=== PATIENT | female | born 1980 | race Caucasian/White ===

== ENCOUNTER 2022-06-05 14:04 | Inpatient (IN) | payer OTHER, SELFPAY ==
--- NOTE | ~2022-06-05 | CT_ITS ---
EXAMINATION: CT ABDOMEN AND PELVIS WITHOUT CONTRAST CLINICAL INFORMATION: Abdominal pain, vomiting COMPARISON: None available. TECHNIQUE: Multidetector volumetric imaging was performed from the superior aspect of the liver through the pubic symphysis. Sagittal and coronal reformatted images were obtained on the technologist's workstation. This CT examination was performed using dose optimization techniques as appropriate, variously including the following: *Automated exposure control *Adjustment of mA and/or kV according to patient size (this includes techniques or standardized protocols for targeted exams where dose is matched to indication/reason for exam; i.e. extremities or head) *Use of iterative reconstruction technique DLP: 446 mGy-cm FINDINGS: LUNG BASES: Unremarkable. ABDOMINAL AND PELVIC WALL: Tiny fat-containing umbilical hernia. LIVER AND BILIARY TREE: Hypoattenuating hepatic parenchyma compatible with hepatic steatosis. GALLBLADDER: Unremarkable. PANCREAS: Unremarkable. SPLEEN: Unremarkable. ADRENAL GLANDS: Unremarkable. KIDNEYS AND URETERS: Intermediate attenuation right upper pole renal lesion measuring 2.0 cm. Right renal parenchymal cortical scarring. Punctate nonobstructing right renal stones. Right sided urothelial thickening. No obstructing stone. Lack of contrast limits evaluation for pyelonephritis. GASTROINTESTINAL TRACT: Colonic diverticulosis without evidence of diverticulitis. Normal appendix. VASCULAR: Unremarkable. LYMPH NODES/PERITONEUM: No lymphadenopathy. FREE FLUID: None. BLADDER: Unremarkable. PELVIC VISCERA: Tampon is present within the vagina. OSSEOUS STRUCTURES: Status post right sacroiliac fusion. Chronic fracture deformities of the bilateral pubic rami. CT/CT abdomen pelvis wo IV con IMPRESSION: 1. Right-sided urothelial thickening, which could be seen in the setting of a urinary tract infection. Recommend correlation with urinalysis. Lack of intravenous contrast limits evaluation for pyelonephritis. 2. Intermediate attenuation right upper pole renal lesion measuring 2.0 cm, incompletely characterized. Recommend further characterization with renal ultrasound and if findings are not determined to reflect a cyst a CT or MR renal mass protocol would be required for further evaluation. 3. Punctate nonobstructing right renal stones. No obstructing stones. 4. Hepatic steatosis.
--- NOTE | ~2022-06-05 | US_ITS ---
EXAMINATION: US PELVIS COMPLETE CLINICAL INFORMATION: Rule out torsion COMPARISON: Same-day CT abdomen pelvis TECHNIQUE: Transabdominal and transvaginal imaging was performed. FINDINGS: The uterus is of normal size and echogenicity measuring 8.3 x 4.5 x 5.2 cm. The endometrium measures thickened for the phase of menstrual cycle measuring 2.1 cm in thickness. Fundal endometrium appears heterogeneous in appearance with question of a 1.8 x 1.1 x 1.4 cm endometrial polyp which could be confirmed with a saline sonohysterogram if warranted. Nabothian cysts in the cervix. Possible small 1.5 cm subserosal myoma in the posterior body of the uterus. Both ovaries are of normal size and echogenicity. The right measures 2.1 x 1.7 x 1.6 cm for a volume of 3.0 mL. The left measures 2.3 x 1.7 x 2.3 cm for a volume of 4.7 mL. Physiologic left ovarian corpus luteum. Vascular flow is present without findings to suggest ovarian torsion. There is no pelvic free fluid. US/US pelvic and transvaginal IMPRESSION: 1. No evidence of ovarian torsion. 2. Endometrium measures thickened for the phase of menstrual cycle measuring 2.1 cm in thickness. Fundal endometrium appears heterogeneous in appearance with question of a 1.8 cm endometrial polyp which could be confirmed with a saline sonohysterogram if warranted. 3. Possible small 1.5 cm subserosal myoma in the posterior body of the uterus.
--- NOTE | ~2022-06-05 | US_ITS ---
EXAMINATION: US PELVIS COMPLETE CLINICAL INFORMATION: Rule out torsion COMPARISON: Same-day CT abdomen pelvis TECHNIQUE: Transabdominal and transvaginal imaging was performed. FINDINGS: The uterus is of normal size and echogenicity measuring 8.3 x 4.5 x 5.2 cm. The endometrium measures thickened for the phase of menstrual cycle measuring 2.1 cm in thickness. Fundal endometrium appears heterogeneous in appearance with question of a 1.8 x 1.1 x 1.4 cm endometrial polyp which could be confirmed with a saline sonohysterogram if warranted. Nabothian cysts in the cervix. Possible small 1.5 cm subserosal myoma in the posterior body of the uterus. Both ovaries are of normal size and echogenicity. The right measures 2.1 x 1.7 x 1.6 cm for a volume of 3.0 mL. The left measures 2.3 x 1.7 x 2.3 cm for a volume of 4.7 mL. Physiologic left ovarian corpus luteum. Vascular flow is present without findings to suggest ovarian torsion. There is no pelvic free fluid. US/US pelvic ovarian doppler IMPRESSION: 1. No evidence of ovarian torsion. 2. Endometrium measures thickened for the phase of menstrual cycle measuring 2.1 cm in thickness. Fundal endometrium appears heterogeneous in appearance with question of a 1.8 cm endometrial polyp which could be confirmed with a saline sonohysterogram if warranted. 3. Possible small 1.5 cm subserosal myoma in the posterior body of the uterus.
[2022-06-05 15:03] LABS: Basophils Absolute Auto 0.1 X10*3/uL (0.0-0.2); Basophils Percent Auto 0.3 % (0-2); Eosinophils Percent Auto 0.1 % (0-4); Hematocrit 36.1 % (37.0-47.0); Hemoglobin 12.4 g/dl (12.0-16.0); Imm Gran Abs Auto 0.08 X10*3/uL (0.00-0.03); Imm Gran Pct Auto 0.5 % (0.0-0.4); Lymphocytes Absolute Auto 1.3 X10*3/uL (1.2-4.9); MANUAL DIFF FLAG SCAN; Mean Corpuscular HGB Conc 34.3 g/dl (31.0-35.0); Mean Corpuscular Hemoglobin 30.2 pg (27.0-33.0); Mean Corpuscular Volume 87.8 fL (80.0-98.0); Mean Platelet Volume 8.5 fL (9.4-12.3); Monocytes Absolute Auto 1.7 X10*3/uL (0.1-1.2); Monocytes Percent Auto 10.3 % (2-11); Neutrophils Absolute Auto 13.4 x10*3/uL (2.0-8.3); Neutrophils Percent Auto 80.8 % (45-73); Platelet Count 250 X10*3/uL (160-400); Red Blood Count 4.11 X10*6/uL (4.20-5.50); Red Cell Distribution Width 13.1 % (11.0-16.0); SCAN SMEAR FLAG 1; White Blood Count 16.6 X10*3/uL (4.8-10.8)
[2022-06-05 15:37] VITALS: BP 129/79; PULSE 83; RESP 16; TEMP 36.9; O2SAT 99; BMI 23.5
--- NOTE | 2022-06-05 15:38 | ED_ITS ---
HPI - Nausea/Vomiting/Diarrhea General Chief complaint: Urogenital-Female <KVNG Dunn Last Filed: 06/05/22 15:42> Stated complaint: vomiting <KVNG Dunn Last Filed: 06/05/22 15:42> Time Seen by Provider: 06/05/22 18:08 <KVNG Dunn Last Filed: 06/05/22 15:42> Source: patient <KVNG Craig Last Filed: 06/05/22 21:46> Mode of arrival: ambulatory <KVNG Craig Last Filed: 06/05/22 21:46> Limitations: no limitations <KVNG Craig Last Filed: 06/05/22 21:46> History of Present Illness HPI Narrative: This is a 42-year-old female history of anxiety presenting to the emergency department with diffuse lower abdominal pain, nausea, vomiting, urinary frequency, urgency, pressure to pelvic region, subjective fevers and chills, frontal head ache ( bandlike pressure, feels like typical, no dizziness, head trauma.) bilateral flank discomfort all of which started at approximately 04:00 today. Patient reports she is not feeling well at all, she reports that she had UTIs when she was in this feels similar. Denies chest pain, shortneses of breath, vision changes, dizziness, hematemesis, diarrhea, trauma. <KVNG Craig Last Filed: 06/05/22 21:46> Related Data Allergies/Adverse reactions: Allergies Allergy/AdvReac Type Severity Reaction Status Date / Time Penicillins Allergy Hives Verified 06/05/22 19:49 <KVNG Dunn Last Filed: 06/05/22 15:42> Review of Systems Review of Systems: Constitutional : No Weight loss, + Fever, + Chills, + Fatigue, + Malaise ENT/Mouth : No sore throat, No Rhinorrhea Eyes: No Eye Pain, No Swelling, No Redness Cardiovascular : No Chest Pain, No SOB, No Dyspnea on Exertion, No Orthopnea, No Edema, No Palpitations Respiratory : No Cough, No Sputum, No Wheezing Gastrointestinal : + Nausea, + Vomiting, No Diarrhea, No Constipation, + abdominal Pain, No Hematochezia, No Melena Genitourinary : No Dysuria, No Urinary Frequency, No Hematuria, + vaginal discomfort Musculoskeletal : No joint pain, No Myalgias, No Joint Swelling Skin : No Skin Lesions, No rash Neuro : No Weakness, No Numbness, No Dizziness, No Headache Psych : No Anxiety/Panic, No Depression All other systems reviewed and are negative <KVNG Craig - Last Filed: 06/05/22 21:46> Yes all other systems are reviewed and are negative <KVNG Craig - Last Filed: 06/05/22 21:46> [facility] Past Medical History Attestation statement: The following information was validated with the patient. <KVNG Craig - Last Filed: 06/05/22 21:46> Source: old records reviewed and nursing notes reviewed <KVNG Craig - Last Filed: 06/05/22 21:46> Social History Social History: Social History Advance Directives: No Advance Directives Information Provided: Yes <KVNG Dunn - Last Filed: 06/05/22 15:42> Physical Exam Vital Signs: Vital Signs: Last Vital Signs Temp 98.6 F 06/05/22 19:57 Pulse 83 06/05/22 19:57 Resp 06/05/22 19:57 BP 132/79 06/05/22 19:57 Pulse Ox 97 06/05/22 19:57 O2 Del Method Room Air 06/05/22 19:57 BMI result Body Mass Index 23.5 <KVNG Dunn - Last Filed: 06/05/22 15:42> Vital Signs: Last Vital Signs Temp 98.6 F 06/05/22 19:57 Pulse 83 06/05/22 19:57 Resp 06/05/22 19:57 BP 132/79 06/05/22 19:57 Pulse Ox 97 06/05/22 19:57 O2 Del Method Room Air 06/05/22 19:57 BMI result Body Mass Index 23.5 vss <KVNG Craig - Last Filed: 06/05/22 21:46> Appearance: Alert.? Oriented X3.? No acute distress.? Patient appears uncomfortable and anxious Head: Normocephalic, atraumatic, no step-offs or deformities Eyes: Pupils equal, round and reactive to light.? ENT: Pharynx normal.? Neck: Normal inspection.? Neck supple.? CVS: Normal heart rate and rhythm.? Pulses normal.? Respiratory: No respiratory distress.? Breath sounds normal.? Abdomen: Soft and diffuse lower abdominal discomfort.? Skin: Skin warm and dry.? Normal skin color.? Normal skin turgor.? Extremities: No lower extremity edema.? No calf ttp. 5/5 strength to bilateral upper and lower extremities Back: Bilateral CVA tenderness. Neuro: Oriented X 3.? No motor deficit.? No sensory deficit. CN 2-12 intact <KVNG Craig - Last Filed: 06/05/22 21:46> Course Course Course Narrative: RME - 42 yo female presents to the ER for evaluation of vomiting and lower abdominal pain that started around 4am. She reports lower abdominal pain, pelvic pressure and increased urinary frequency. Plan: labs and CT scans <KVNG Dunn - Last Filed: 06/05/22 15:42> Reevaluation(s) Reevaluation #1: CBC with significant leukocytosis 16.6, patient was treated with Levaquin to cover for possible pyelonephritis. Chemistry with no acute electrolyte abnormalities requiring intervention. Bilirubin elevated 2.1 however patient's pain is primarily in the lower abdomen, no tenderness overlying the liver, negat mary kate Stone sign and likely choledocholithiasis or cholelithiasis. Negative lactic acid. UA grossly infected and patient's physical exam concerning for pyelonephritis. CT of the abdomen and pelvis showing right-sided irothelial thickening common in the setting of UTI. Also could be consistent consuelo lonephritis although scan limited due to lack of contrast. Upper right pole renal lesion noted. Nonobstructing right renal stones. Hepatic steatosis. Ultrasound with no evidence of torsion. Endometrium thickened. Possible myoma. Patient will be admitted to the hospital for further evaluation treatment. <KVNG Craig Last Filed: 06/05/22 21:46> Time: 21:44 <KVNG Craig Last Filed: 06/05/22 21:46> Medications Administered Discontinued Medications Generic Name Dose Route Start Last Admin Trade Name Freq PRN Reason Stop Dose Admin Levofloxacin 750 mg in 150 mls @ 100 mls/hr 06/05/22 18:53 06/05/22 21:34 Levaquin IV 06/05/22 20:22 Infused ONCE ONE Infusion Morphine Sulfate 4 mg 06/05/22 18:56 06/05/22 19:51 Morphine Sulfate 4 Mg/Ml Cartridge IVPUSH 06/05/22 18:57 4 mg ONCE ONE Administration Protocol <KVNG Dunn - Last Filed: 06/05/22 15:42> Medications Administered Discontinued Medications Generic Name Dose Route Start Last Admin Trade Name Freq PRN Reason Stop Dose Admin Levofloxacin 750 mg in 150 mls @ 100 mls/hr 06/05/22 18:53 06/05/22 21:34 Levaquin IV 06/05/22 20:22 Infused ONCE ONE Infusion Morphine Sulfate 4 mg 06/05/22 18:56 06/05/22 19:51 Morphine Sulfate 4 Mg/Ml Cartridge IVPUSH 06/05/22 18:57 4 mg ONCE ONE Administration Protocol <KVNG Craig Last Filed: 06/05/22 21:46> Medical Decision Making Medical Decision Making MDM Narrative: 42-year-old female history of anxiety presenting to the emergency department with diffuse lower abdominal pain, nausea, vomiting, urinary frequency, urgency, pressure to pelvic region, subjective fevers and chills, frontal head ache, bilateral flank discomfort all of which started at approximately 04:00 today Pe w/ cva tenderness b/l. Diffuse lower abd discomfort.Patient unwell appearing and anxious Likely UTI vs pylo. Unlikely obstructive uropathy, acute abdomen, ectopic, torsion, severe sepsis Plan: labs, imaging, UA <KVNG Craig Last Filed: 06/05/22 21:46> Differential Diagnosis Differential Diagnoses: The differential diagnosis associated with the presentation includes <KVNG Craig Last Filed: 06/05/22 21:46> Likely UTI vs pylo. Unlikely obstructive uropathy, acute abdomen, ectopic, torsion, severe sepsis <KVNG Craig Last Filed: 06/05/22 21:46> Admission/Observation Consideration of admission/observation: Escalation of care including admission/observation considered <KVNG Craig - Last Filed: 06/05/22 21:46> Likely <KVNG Craig - Last Filed: 06/05/22 21:46> Consult Healthcare Provider Management of the patient was discussed with: Hospitalist <KVNG Craig - Last Filed: 06/05/22 21:46> Lab Data MDM Lab Attestation statement: I reviewed the patient's lab results. <KVNG Craig - Last Filed: 06/05/22 21:46> Result Diagrams: 06/05/22 14:56 06/05/22 14:56 <KVNG Dunn - Last Filed: 06/05/22 15:42> Labs: Lab Results 06/05/22 06/05/22 06/05/22 Range/Units 14:56 14:56 18:43 WBC 16.6 H (4.8-10.8) X10*3/uL RBC 4.11 L (4.20-5.50) X10*6/uL Hgb 12.4 (12.0-16.0) g/dl Hct 36.1 L (37.0-47.0) % MCV 87.8 (80.0-98.0) fL MCH 30.2 (27.0-33.0) pg MCHC 34.3 (31.0-35.0) g/dl RDW 13.1 (11.0-16.0) % Plt Count 250 (160-400) X10*3/uL MPV 8.5 L (9.4-12.3) fL Immature Gran % (Auto) 0.5 H (0.0-0.4) % Neut % (Auto) 80.8 H (45-73) % Lymph % (Auto) 8.0 L (20-40) % [place] % (Auto) 10.3 (2-11) % Eos % (Auto) 0.1 (0-4) % Baso % (Auto) 0.3 (0-2) % Lymph # (Auto) 1.3 (1.2-4.9) X10*3/uL [place] # (Auto) 1.7 H (0.1-1.2) X10*3/uL Eos # (Auto) 0.0 (0.0-0.4) X10*3/uL Baso # (Auto) 0.1 (0.0-0.2) X10*3/uL Abs Immat Gran (auto) 0.08 H (0.00-0.03) X10*3/uL Absolute Neuts (auto) 13.4 H (2.0-8.3) x10*3/uL Absolute Nucleated RBC 0.000 (0.0-0.012) X10*3/uL Nucleated RBC % (auto) 0.0 (0.0-0.2) /100WBC Smear Tech's Comments VERIFIED Sodium 139 (135-145) mmol/L Potassium 4.0 (3.3-5.1) mmol/L Chloride 104 (96-108) mmol/L Carbon Dioxide 23 (22-29) mmol/L Anion Gap 16 (12-20) BUN 8 L (9-16) mg/dL Creatinine 0.74 (0.5-1.4) mg/dL Estim Creat Clear Calc 97.2 Estimated GFR > 60 Random Glucose 120 H (60-115) mg/dL Lactic Acid 0.6 (0.5-2.0) mmol/L Calcium 9.8 (8.4-10.2) mg/dL Magnesium 1.9 (1.6-2.6) mg/dL Total Bilirubin 2.1 H (0.0-1.0) mg/dL Direct Bilirubin 0.5 (0.0-0.5) mg/dL AST 12 (5-31) U/L ALT 14 (0-31) U/L Alkaline Phosphatase 76 (39-117) U/L Total Protein 7.3 (6.5-8.0) g/dL Albumin 4.2 (3.5-5.0) g/dL Lipase 13 (8-78) U/L Beta HCG, Quant < 2 mIU/mL Urine Color Urine Appearance Urine pH (5.0-9.0) Ur Specific [place] (1.005-1.025) Urine Protein (Neg-Trace) mg/dL Urine Glucose (UA) (Negative) mg/dL Urine Ketones (Negative) mg/dL Urine Blood (Negative) Urine Nitrite (Negative) Ur Leukocyte Esterase (Negative) Urine RBC (0-2) /HPF Urine WBC (0-5) /HPF Ur Squamous Epith Cells (0-2) /HPF Urine Bacteria (None Seen) Hyaline Casts (0-2) /LPF Urine Test (NEGATIVE) 06/05/22 06/05/22 Range/Units 20:06 20:06 WBC (4.8-10.8) X10*3/uL RBC (4.20-5.50) X10*6/uL Hgb (12.0-16.0) g/dl Hct (37.0-47.0) % MCV (80.0-98.0) fL MCH (27.0-33.0) pg MCHC (31.0-35.0) g/dl RDW (11.0-16.0) % Plt Count (160-400) X10*3/uL MPV (9.4-12.3) fL Immature Gran % (Auto) (0.0-0.4) % Neut % (Auto) (45-73) % Lymph % (Auto) (20-40) % [place] % (Auto) (2-11) % Eos % (Auto) (0-4) % Baso % (Auto) (0-2) % Lymph # (Auto) (1.2-4.9) X10*3/uL [place] # (Auto) (0.1-1.2) X10*3/uL Eos # (Auto) (0.0-0.4) X10*3/uL Baso # (Auto) (0.0-0.2) X10*3/uL Abs Immat Gran (auto) (0.00-0.03) X10*3/uL Absolute Neuts (auto) (2.0-8.3) x10*3/uL Absolute Nucleated RBC (0.0-0.012) X10*3/uL Nucleated RBC % (auto) (0.0-0.2) /100WBC Smear Tech's Comments Sodium (135-145) mmol/L Potassium (3.3-5.1) mmol/L Chloride (96-108) mmol/L Carbon Dioxide (22-29) mmol/L Anion Gap (12-20) BUN (9-16) mg/dL Creatinine (0.5-1.4) mg/dL Estim Creat Clear Calc Estimated GFR Random Glucose (60-115) mg/dL Lactic Acid (0.5-2.0) mmol/L Calcium (8.4-10.2) mg/dL Magnesium (1.6-2.6) mg/dL Total Bilirubin (0.0-1.0) mg/dL Direct Bilirubin (0.0-0.5) mg/dL AST (5-31) U/L ALT (0-31) U/L Alkaline Phosphatase (39-117) U/L Total Protein (6.5-8.0) g/dL Albumin (3.5-5.0) g/dL Lipase (8-78) U/L Beta HCG, Quant mIU/mL Urine Color Yellow Urine Appearance Turbid Urine pH 7.5 (5.0-9.0) Ur Specific [place] 1.010 (1.005-1.025) Urine Protein 100 (2+) H (Neg-Trace) mg/dL Urine Glucose (UA) Negative (Negative) mg/dL Urine Ketones Trace (Negative) mg/dL Urine Blood Moderate (2+) H (Negative) Urine Nitrite Negative (Negative) Ur Leukocyte Esterase Large (3+) H (Negative) Urine RBC 6-10 H (0-2) /HPF Urine WBC >50 H (0-5) /HPF Ur Squamous Epith Cells 0-2 (0-2) /HPF Urine Bacteria 2+ (None Seen) Hyaline Casts 3-5 (0-2) /LPF Urine Test NEGATIVE (NEGATIVE) <KVNG Dunn - Last Filed: 06/05/22 15:42> Lab Results 06/05/22 06/05/22 06/05/22 Range/Units 14:56 14:56 18:43 WBC 16.6 H (4.8-10.8) X10*3/uL RBC 4.11 L (4.20-5.50) X10*6/uL Hgb 12.4 (12.0-16.0) g/dl Hct 36.1 L (37.0-47.0) % MCV 87.8 (80.0-98.0) fL MCH 30.2 (27.0-33.0) pg MCHC 34.3 (31.0-35.0) g/dl RDW 13.1 (11.0-16.0) % Plt Count 250 (160-400) X10*3/uL MPV 8.5 L (9.4-12.3) fL Immature Gran % (Auto) 0.5 H (0.0-0.4) % Neut % (Auto) 80.8 H (45-73) % Lymph % (Auto) 8.0 L (20-40) % [place] % (Auto) 10.3 (2-11) % Eos % (Auto) 0.1 (0-4) % Baso % (Auto) 0.3 (0-2) % Lymph # (Auto) 1.3 (1.2-4.9) X10*3/uL [place] # (Auto) 1.7 H (0.1-1.2) X10*3/uL Eos # (Auto) 0.0 (0.0-0.4) X10*3/uL Baso # (Auto) 0.1 (0.0-0.2) X10*3/uL Abs Immat Gran (auto) 0.08 H (0.00-0.03) X10*3/uL Absolute Neuts (auto) 13.4 H (2.0-8.3) x10*3/uL Absolute Nucleated RBC 0.000 (0.0-0.012) X10*3/uL Nucleated RBC % (auto) 0.0 (0.0-0.2) /100WBC Smear Tech's Comments VERIFIED Sodium 139 (135-145) mmol/L Potassium 4.0 (3.3-5.1) mmol/L Chloride 104 (96-108) mmol/L Carbon Dioxide 23 (22-29) mmol/L Anion Gap 16 (12-20) BUN 8 L (9-16) mg/dL Creatinine 0.74 (0.5-1.4) mg/dL Estim Creat Clear Calc 97.2 Estimated GFR > 60 Random Glucose 120 H (60-115) mg/dL Lactic Acid 0.6 (0.5-2.0) mmol/L Calcium 9.8 (8.4-10.2) mg/dL Magnesium 1.9 (1.6-2.6) mg/dL Total Bilirubin 2.1 H (0.0-1.0) mg/dL Direct Bilirubin 0.5 (0.0-0.5) mg/dL AST 12 (5-31) U/L ALT 14 (0-31) U/L Alkaline Phosphatase 76 (39-117) U/L Total Protein 7.3 (6.5-8.0) g/dL Albumin 4.2 (3.5-5.0) g/dL Lipase 13 (8-78) U/L Beta HCG, Quant < 2 mIU/mL Urine Color Urine Appearance Urine pH (5.0-9.0) Ur Specific [place] (1.005-1.025) Urine Protein (Neg-Trace) mg/dL Urine Glucose (UA) (Negative) mg/dL Urine Ketones (Negative) mg/dL Urine Blood (Negative) Urine Nitrite (Negative) Ur Leukocyte Esterase (Negative) Urine RBC (0-2) /HPF Urine WBC (0-5) /HPF Ur Squamous Epith Cells (0-2) /HPF Urine Bacteria (None Seen) Hyaline Casts (0-2) /LPF Urine Test (NEGATIVE) 06/05/22 06/05/22 Range/Units 20:06 20:06 WBC (4.8-10.8) X10*3/uL RBC (4.20-5.50) X10*6/uL Hgb (12.0-16.0) g/dl Hct (37.0-47.0) % MCV (80.0-98.0) fL MCH (27.0-33.0) pg MCHC (31.0-35.0) g/dl RDW (11.0-16.0) % Plt Count (160-400) X10*3/uL MPV (9.4-12.3) fL Immature Gran % (Auto) (0.0-0.4) % Neut % (Auto) (45-73) % Lymph % (Auto) (20-40) % [place] % (Auto) (2-11) % Eos % (Auto) (0-4) % Baso % (Auto) (0-2) % Lymph # (Auto) (1.2-4.9) X10*3/uL [place] # (Auto) (0.1-1.2) X10*3/uL Eos # (Auto) (0.0-0.4) X10*3/uL Baso # (Auto) (0.0-0.2) X10*3/uL Abs Immat Gran (auto) (0.00-0.03) X10*3/uL Absolute Neuts (auto) (2.0-8.3) x10*3/uL Absolute Nucleated RBC (0.0-0.012) X10*3/uL Nucleated RBC % (auto) (0.0-0.2) /100WBC Smear Tech's Comments Sodium (135-145) mmol/L Potassium (3.3-5.1) mmol/L Chloride (96-108) mmol/L Carbon Dioxide (22-29) mmol/L Anion Gap (12-20) BUN (9-16) mg/dL Creatinine (0.5-1.4) mg/dL Estim Creat Clear Calc Estimated GFR Random Glucose (60-115) mg/dL Lactic Acid (0.5-2.0) mmol/L Calcium (8.4-10.2) mg/dL Magnesium (1.6-2.6) mg/dL Total Bilirubin (0.0-1.0) mg/dL Direct Bilirubin (0.0-0.5) mg/dL AST (5-31) U/L ALT (0-31) U/L Alkaline Phosphatase (39-117) U/L Total Protein (6.5-8.0) g/dL Albumin (3.5-5.0) g/dL Lipase (8-78) U/L Beta HCG, Quant mIU/mL Urine Color Yellow Urine Appearance Turbid Urine pH 7.5 (5.0-9.0) Ur Specific [place] 1.010 (1.005-1.025) Urine Protein 100 (2+) H (Neg-Trace) mg/dL Urine Glucose (UA) Negative (Negative) mg/dL Urine Ketones Trace (Negative) mg/dL Urine Blood Moderate (2+) H (Negative) Urine Nitrite Negative (Negative) Ur Leukocyte Esterase Large (3+) H (Negative) Urine RBC 6-10 H (0-2) /HPF Urine WBC >50 H (0-5) /HPF Ur Squamous Epith Cells 0-2 (0-2) /HPF Urine Bacteria 2+ (None Seen) Hyaline Casts 3-5 (0-2) /LPF Urine Test NEGATIVE (NEGATIVE) <KVNG Craig - Last Filed: 06/05/22 21:46> Independent Interpretation I performed an independent interpretation of an: Ultrasound (US/US pelvic ovarian doppler IMPRESSION: 1. No evidence of ovarian torsion. 2. Endometrium measures thickened for the phase of menstrual cycle measuring 2.1 cm in thickness. Fundal endometrium appears heterogeneous in appearance with question of a 1.8 cm endometrial polyp which could be confirmed ) and CT Scan (CT/CT abdomen pelvis wo IV con IMPRESSION: 1. Right-sided urothelial thickening, which could be seen in the setting of a urinary tract infection. Recommend correlation with urinalysis. Lack of intravenous contrast limits evaluation for pyelonephritis. 2. Intermediate attenuation right upper pole r) <KVNG Craig - Last Filed: 06/05/22 21:46> Radiology Impression Discussion of test interpretation with radiology: I have reviewed the radiologist's reading. <KVNG Craig - Last Filed: 06/05/22 21:46> Core Measures AMI core measures followed: Yes <KVNG Craig - Last Filed: 06/05/22 21:46> Measure exclusions: not indicated <KVNG Craig - Last Filed: 06/05/22 21:46> Critical Care Time Critical Care Time Critical Care Time: No <KVNG Craig - Last Filed: 06/05/22 21:46> Discharge Plan Discharge Clinical Impression: Pyelonephritis <KVNG Dunn - Last Filed: 06/05/22 15:42> Patient Disposition: Admitted As Inpatient <KVNG Dunn Last Filed: 06/05/22 15:42>
[2022-06-05 15:56] LABS: SLIDE REVIEW VERIFIED
[2022-06-05 16:46] LABS: Alanine Aminotransferase 14 U/L (0-31); Albumin Level 4.2 g/dL (3.5-5.0); Alkaline Phosphatase 76 U/L (39-117); Anion Gap 16 (12-20); Aspartate Amino Transferase 12 U/L (5-31); Bilirubin Direct 0.5 mg/dL (0.0-0.5); Bilirubin Total 2.1 mg/dL (0.0-1.0); Blood Urea Nitrogen 8 mg/dL (9-16); Calcium 9.8 mg/dL (8.4-10.2); Carbon Dioxide 23 mmol/L (22-29); Chloride 104 mmol/L (96-108); Creatinine Clr Calc Pharmacy 97.2; Estimated Glomerular Filt Rate > 60; Glucose Random 120 mg/dL (60-115); HCG Quantitative < 2 mIU/mL; Lipase 13 U/L (8-78); Magnesium 1.9 mg/dL (1.6-2.6); Sodium 139 mmol/L (135-145); Total Protein 7.3 g/dL (6.5-8.0)
[2022-06-05 19:16] LABS: Lactic Acid 0.6 mmol/L (0.5-2.0)
[2022-06-05 19:51] VITALS: RESP 16
[2022-06-05] MEDS: levoFLOXacin/D5W 750 MG/150 ML PIGGYBACK 100 MG IV (19:51)
[2022-06-05] MEDS: Morphine Sulfate 4 MG/ML CARTRIDGE IVPUSH (19:51)
[2022-06-05 19:57] VITALS: BP 132/79; PULSE 83; RESP 19; TEMP 37; O2SAT 97
[2022-06-05 20:14] LABS: Appearance Urine Turbid; Color Urine Yellow; Glucose Urine UA Negative (Negative); Leukocyte Esterase Urine Large (3+) (Negative); Nitrite Urine Negative (Negative); PH 7.5 (5.0-9.0); UMIC TRIGGER UACC YES; Urine Blood Moderate (2+) (Negative); Urine Ketones Trace mg/dL (Negative); Urine Protein 100 (2+) mg/dL (Neg-Trace)
[2022-06-05 20:17] LABS: UPreg QC Valid YES; Urine Pregnancy NEGATIVE (NEGATIVE)
[2022-06-05 21:23] LABS: Bacteria Urine 2+ (None Seen); Squamous Epithelial Cell Urine 0-2 /HPF (0-2); UACC Culture Trigger YES; WBC Urine >50 /HPF (0-5)
[2022-06-05] MEDS: 0.9 % Sodium Chloride 1,000 ML 999 ML IV (21:44)
[2022-06-05] MEDS: ondansetron HCL 4 MG/2 ML VIAL IVPUSH (21:44)
--- NOTE | 2022-06-05 21:45 | PM.IMHP ---
History of Present Illness Date of Service: 06/05/22 Chief Complaint: Abdominal pain, nausea vomit 42-year-old female with no significant past medical history comes into the hospital with complaints of nausea vomiting, lower abdominal pain, urinary frequency, urgency, dysuria, as well as flank pain bilaterally that started yesterday. Patient denies fever but has chills, reports no chest pain, no shortness of breath, no diarrhea constipation, no lower extremity edema. No numbness tingling or weakness, no change in vision and headache. On arrival to the patient hemodynamically stable with no significant abnormal vitals Labs are significant WBC count of 16.6, hemoglobin of 12.4, hematocrit 36.1, UA positive for leukocyte Estrace, WBC, bacteria, Abdominal pelvic CT shows right-sided urothelial thickening which could be seen in the setting of urinary tract infection, there is also an indeterminate intermediate attenuation in the right upper pole of the renal lesion measuring 2.0 cm, no obstructing stone Patient started on IV antibiotics will be admitted for further management Review of Systems Review of Systems: Yes all other systems are reviewed and are negative COUNTS INCLUDE 234 BEDS AT THE [facility] Medical History (Updated 06/05/22 @ 21:49 by Que Morfin MD) No pertinent past medical history Surgical History (Updated 06/05/22 @ 21:49 by Que Morfin MD) No pertinent past surgical history Social History (Updated 06/05/22 @ 21:49 by Que Morfin MD) Alcohol intake: current Patient Tobacco Use Status: Never used Tobacco Meds Allergies Allergy/AdvReac Type Severity Reaction Status Date / Time Penicillins Allergy Hives Verified 06/05/22 19:49 Physical Exam Vital Signs and Narrative: Vital Signs: Last Vital Signs Temp 98.6 F 06/05/22 19:57 Pulse 83 06/05/22 19:57 Resp 19 06/05/22 19:57 BP 132/79 06/05/22 19:57 Pulse Ox 97 06/05/22 19:57 O2 Del Method Room Air 06/05/22 19:57 BMI result Body Mass Index 23.5 Const: General: cooperative and no acute distress Orientation/consciousness: patient oriented x3 Eyes: General: appearance normal, both eyes and all related structures Resp: Effort & Inspection: normal respiratory effort Auscultation: clear to auscultation bilaterally Cardio: Rate: regular rate Rhythm: regular rhythm GI: Palpation (GI): Soft to palpation Auscultation: normal bowel sounds : Other: Suprapubic tenderness, bilateral CVA tenderness worse on the left Skin: General skin exam: no rashes or lesions noted Neuro: General: patient oriented x3 Cognition (Neuro): normal cognition Extrem: General: Yes normal to inspection and Yes no pedal edema Results Labs 06/05/22 14:56 06/05/22 14:56 Labs: Laboratory Results - last 24 hr 06/05/22 06/05/22 06/05/22 14:56 14:56 18:43 MCV 87.8 MCH 30.2 MCHC 34.3 RDW 13.1 Plt Count 250 MPV 8.5 L Immature Gran % (Auto) 0.5 H Neut % (Auto) 80.8 H Lymph % (Auto) 8.0 L [place] % (Auto) 10.3 Eos % (Auto) 0.1 Baso % (Auto) 0.3 Lymph # (Auto) 1.3 [place] # (Auto) 1.7 H Eos # (Auto) 0.0 Baso # (Auto) 0.1 Abs Immat Gran (auto) 0.08 H Absolute Neuts (auto) 13.4 H Absolute Nucleated RBC 0.000 Nucleated RBC % (auto) 0.0 Smear Tech's Comments VERIFIED Anion Gap 16 Estim Creat Clear Calc 97.2 Estimated GFR > 60 Random Glucose 120 H Lactic Acid 0.6 Calcium 9.8 Magnesium 1.9 Total Bilirubin 2.1 H Direct Bilirubin 0.5 AST 12 ALT 14 Alkaline Phosphatase 76 Total Protein 7.3 Albumin 4.2 Lipase 13 Beta HCG, Quant < 2 Urine Color Urine Appearance Urine pH Ur Specific [place] Urine Protein Urine Glucose (UA) Urine Ketones Urine Blood Urine Nitrite Ur Leukocyte Esterase Urine RBC Urine WBC Ur Squamous Epith Cells Urine Bacteria Hyaline Casts Urine Test 06/05/22 06/05/22 20:06 20:06 MCV MCH MCHC RDW Plt Count MPV Immature Gran % (Auto) Neut % (Auto) Lymph % (Auto) [place] % (Auto) Eos % (Auto) Baso % (Auto) Lymph # (Auto) [place] # (Auto) Eos # (Auto) Baso # (Auto) Abs Immat Gran (auto) Absolute Neuts (auto) Absolute Nucleated RBC Nucleated RBC % (auto) Smear Tech's Comments Anion Gap Estim Creat Clear Calc Estimated GFR Random Glucose Lactic Acid Calcium Magnesium Total Bilirubin Direct Bilirubin AST ALT Alkaline Phosphatase Total Protein Albumin Lipase Beta HCG, Quant Urine Color Yellow Urine Appearance Turbid Urine pH 7.5 Ur Specific [place] 1.010 Urine Protein 100 (2+) H Urine Glucose (UA) Negative Urine Ketones Trace Urine Blood Moderate (2+) H Urine Nitrite Negative Ur Leukocyte Esterase Large (3+) H Urine RBC 6-10 H Urine WBC >50 H Ur Squamous Epith Cells 0-2 Urine Bacteria 2+ Hyaline Casts 3-5 Urine Test NEGATIVE Imaging Radiologist's Impressions: Impressions Abdomen/Pelvis CT 06/05/22 17:01 IMPRESSION: 1. Right-sided urothelial thickening, which could be seen in the setting of a urinary tract infection. Recommend correlation with urinalysis. Lack of intravenous contrast limits evaluation for pyelonephritis. 2. Intermediate attenuation right upper pole renal lesion measuring 2.0 cm, incompletely characterized. Recommend further characterization with renal ultrasound and if findings are not determined to reflect a cyst a CT or MR renal mass protocol would be required for further evaluation. 3. Punctate nonobstructing right renal stones. No obstructing stones. 4. Hepatic steatosis. Doppler Study Ultrasound 06/05/22 19:28 IMPRESSION: 1. No evidence of ovarian torsion. 2. Endometrium measures thickened for the phase of menstrual cycle measuring 2.1 cm in thickness. Fundal endometrium appears heterogeneous in appearance with question of a 1.8 cm endometrial polyp which could be confirmed with a saline sonohysterogram if warranted. 3. Possible small 1.5 cm subserosal myoma in the posterior body of the uterus. Pelvic/Transvag US 06/05/22 19:28 IMPRESSION: 1. No evidence of ovarian torsion. 2. Endometrium measures thickened for the phase of menstrual cycle measuring 2.1 cm in thickness. Fundal endometrium appears heterogeneous in appearance with question of a 1.8 cm endometrial polyp which could be confirmed with a saline sonohysterogram if warranted. 3. Possible small 1.5 cm subserosal myoma in the posterior body of the uterus. Assessment and Plan (1) Pyelonephritis: Status: Acute (2) Acute UTI: Status: Acute (3) Renal lesion: Status: Acute Plan This is a 42-year-old female who denies any past medical history presents to the hospital with complaints of urinary symptoms found to have acute UTI and pyelonephritis # acute UTI/pyelonephritis - positive UA, evidence of CVA tenderness, urinary symptoms including urgency frequency and dysuria - has leukocytosis - will treat with IV antibiotics - follow cultures # renal lesion - 2.0 cm lesion seen on CT of the abdomen - will need follow-up outpatient DVT prophylaxis: Early ambulation Given pyelonephritis patient will require minimum 2 night inpatient hospital stay for further management and monitoring Time Spent With Patient Time: Total time managing care of this patient today ____ minutes. Quality Stroke Does the patient have a stroke diagnosis?: No VTE Prior VTE?: No VTE Risk Level:: Medical - low VTE Device Contraindication: Treatment Not Indicated VTE Drug Contraindication: Treatment Not Indicated
[2022-06-05 22:08] VITALS: BP 107/59; PULSE 87; RESP 18; TEMP 36.9; O2SAT 100
--- NOTE | 2022-06-05 22:32 | PHA.MEDREC ---
Pharmacy Consult ? Medication Reconciliation Pharmacy has completed the medication reconciliation.
[2022-06-05] MEDS: cefTRIAXone sodium 1 GM in 0.9 % Sodium Chloride 50 ML IV (22:42)
[2022-06-05] MEDS: Lactated Ringers 1,000 ML 100 ML IVCONT (23:40)
--- NOTE | 2022-06-06 01:24 | PC.NURSE ---
Pt A&Ox4, reports 8/10 headache and pelvic discomfort r/t to ultrasound. Pt had two episodes of vomiting while here, meds given as documented. Pt ambulatory with steady gait to BR. Pt had one episode of urinary incontinece, states it happens when I cough at times . Reports effectiveness to meds given. Pt tolerating PO fluids and saltine crackers. 0109: RN to RN report given to Zulma CROUCH. Pt will be transported to room 364 by quality control lab tech, Pt aware of plan.
[2022-06-06 01:33] VITALS: BP 126/67; PULSE 82; RESP 18; TEMP 36.8; O2SAT 100
[2022-06-06 01:37] VITALS: BMI 24.0
[2022-06-06 03:42] VITALS: BP 99/56; PULSE 73; RESP 18; TEMP 36.5; O2SAT 98
[2022-06-06 06:40] LABS: MANUAL DIFF FLAG NO
[2022-06-06 06:45] LABS: Basophils Percent Auto 0.1 % (0-2); Hematocrit 33.8 % (37.0-47.0); Hemoglobin 11.8 g/dl (12.0-16.0); Imm Gran Abs Auto 0.05 X10*3/uL (0.00-0.03); Imm Gran Pct Auto 0.3 % (0.0-0.4); Lymphocytes Absolute Auto 1.5 X10*3/uL (1.2-4.9); Lymphocytes Percent Auto 10.3 % (20-40); Mean Corpuscular HGB Conc 34.9 g/dl (31.0-35.0); Mean Corpuscular Volume 88.7 fL (80.0-98.0); Mean Platelet Volume 9.3 fL (9.4-12.3); Monocytes Absolute Auto 1.4 X10*3/uL (0.1-1.2); Monocytes Percent Auto 9.9 % (2-11); Neutrophils Absolute Auto 11.3 x10*3/uL (2.0-8.3); Neutrophils Percent Auto 79.4 % (45-73); Platelet Count 232 X10*3/uL (160-400); Red Blood Count 3.81 X10*6/uL (4.20-5.50); Red Cell Distribution Width 13.2 % (11.0-16.0); White Blood Count 14.3 X10*3/uL (4.8-10.8)
[2022-06-06 07:19] LABS: Anion Gap 13 (12-20); Blood Urea Nitrogen 6 mg/dL (9-16); Calcium 8.8 mg/dL (8.4-10.2); Carbon Dioxide 22 mmol/L (22-29); Chloride 107 mmol/L (96-108); Creatinine Clr Calc Pharmacy 109.1; Estimated Glomerular Filt Rate > 60; Glucose Random 111 mg/dL (60-115); Sodium 138 mmol/L (135-145)
[2022-06-06 07:48] VITALS: BP 126/71; PULSE 72; RESP 17; TEMP 36.9; O2SAT 98
[2022-06-06] MEDS: Acetaminophen 325 MG TABLET 650 MG PO ×2 (08:50→23:57)
[2022-06-06] MEDS: Lactated Ringers 1,000 ML 100 ML IVCONT ×2 (10:21→21:56)
--- NOTE | 2022-06-06 10:52 | MHC.CM.PN ---
PT REPORTS SHE LIVES WITH HER 3 CHILDREN SHE IS INDEPENDENT WITH CARE, HAS NO DME AND NO SERVICES SHE COMPLETED A HCP TODAY NAMING HER SISTER, MARGY, HER AGENT HCP NOW ON FILE PT DOES NOT HAVE A PCP AND IS NO COVID [facility] DCP: HOME NO SERVICES PT TO ARRANGE TRANSPORT
--- NOTE | 2022-06-06 15:07 | HO.PM.IMPN ---
Subjective Subjective Date of Service: 06/06/22 Interval History: Abdominal pain, nausea vomit Review of Systems still has similar abd pain, no fevers Physical Exam Vital Signs: Vital Signs: Last Vital Signs Temp 98.4 F 06/06/22 07:48 Pulse 72 06/06/22 07:48 Resp 17 06/06/22 07:48 BP 126/71 06/06/22 07:48 Pulse Ox 98 06/06/22 07:48 O2 Del Method Room Air 06/06/22 07:48 BMI result Body Mass Index 24.0 Appearance: Alert.? Oriented X3.? not in distress.?. cvs: rrr, [id number] . res: clear to auscultation ,no rhonchii or wheezing abd: no rebound or guarding ,right cva tenderness , bs present. ext pulses present , no cyanosis. neuro: axo3 , nonfocal. Objective Data Active Medications Acetaminophen (Acetaminophen 325 Mg Tablet) 650 mg PO Q6H PRN PRN Reason: Pain, Mild (Pain Scale 1-3) Last Admin: 06/06/22 08:50 Dose: 650 mg Documented By: CHAD Docusate Sodium (Docusate Sodium 100 Mg Capsule) 100 mg PO DAILY PRN PRN Reason: Constipation Ceftriaxone Sodium 1 gm/ (Sodium Chloride) 50 mls @ 100 mls/hr IV Q24H [facility] Last Infusion: 06/05/22 23:40 Dose: 0 mls/hr Documented By: JERONIMO Lactated Ringer's (Lr) 1,000 mls @ 100 mls/hr IVCONT .Q10H [facility] Last Admin: 06/06/22 10:21 Dose: 100 mls/hr Documented By: CHAD Ondansetron HCl (Ondansetron Hcl 4 Mg/2 Ml Vial) 4 mg IVPUSH Q8H PRN PRN Reason: Nausea and Vomiting Oxycodone HCl (Oxycodone Hcl Immed Release 5 Mg Tablet) 5 mg PO Q6H PRN PRN Reason: Pain, Severe (Pain Scale 7-10) Pharmacy Consult (Consult Rx Perform Med Rec) 1 each MISCELLANE ONCE PRN PRN Reason: Consult order Sodium Chloride (0.9 % Sodium Chloride Flush 3 Ml Syringe) 3 ml IVFLUSH QSHIFT [facility] Last Admin: 06/06/22 08:51 Dose: Not Given Documented By: CHAD Non-Admin Reason: IV Running Labs 06/06/22 06:15 06/06/22 06:15 Labs: Laboratory Results - last 24 hr 06/05/22 06/05/22 06/05/22 14:56 14:56 18:43 MCV 87.8 MCH 30.2 MCHC 34.3 RDW 13.1 Plt Count 250 MPV 8.5 L Immature Gran % (Auto) 0.5 H Neut % (Auto) 80.8 H Lymph % (Auto) 8.0 L [place] % (Auto) 10.3 Eos % (Auto) 0.1 Baso % (Auto) 0.3 Lymph # (Auto) 1.3 [place] # (Auto) 1.7 H Eos # (Auto) 0.0 Baso # (Auto) 0.1 Abs Immat Gran (auto) 0.08 H Absolute Neuts (auto) 13.4 H Absolute Nucleated RBC 0.000 Nucleated RBC % (auto) 0.0 Smear Tech's Comments VERIFIED Anion Gap 16 Estim Creat Clear Calc 97.2 Estimated GFR > 60 Random Glucose 120 H Lactic Acid 0.6 Calcium 9.8 Magnesium 1.9 Total Bilirubin 2.1 H Direct Bilirubin 0.5 AST 12 ALT 14 Alkaline Phosphatase 76 Total Protein 7.3 Albumin 4.2 Lipase 13 Beta HCG, Quant < 2 Urine Color Urine Appearance Urine pH Ur Specific [place] Urine Protein Urine Glucose (UA) Urine Ketones Urine Blood Urine Nitrite Ur Leukocyte Esterase Urine RBC Urine WBC Ur Squamous Epith Cells Urine Bacteria Hyaline Casts Urine Test 06/05/22 06/05/22 06/06/22 20:06 20:06 06:15 MCV 88.7 MCH 31.0 MCHC 34.9 RDW 13.2 Plt Count 232 MPV 9.3 L Immature Gran % (Auto) 0.3 Neut % (Auto) 79.4 H Lymph % (Auto) 10.3 L [place] % (Auto) 9.9 Eos % (Auto) 0.0 Baso % (Auto) 0.1 Lymph # (Auto) 1.5 [place] # (Auto) 1.4 H Eos # (Auto) 0.0 Baso # (Auto) 0.0 Abs Immat Gran (auto) 0.05 H Absolute Neuts (auto) 11.3 H Absolute Nucleated RBC 0.000 Nucleated RBC % (auto) 0.0 Smear Tech's Comments Anion Gap Estim Creat Clear Calc Estimated GFR Random Glucose Lactic Acid Calcium Magnesium Total Bilirubin Direct Bilirubin AST ALT Alkaline Phosphatase Total Protein Albumin Lipase Beta HCG, Quant Urine Color Yellow Urine Appearance Turbid Urine pH 7.5 Ur Specific [place] 1.010 Urine Protein 100 (2+) H Urine Glucose (UA) Negative Urine Ketones Trace Urine Blood Moderate (2+) H Urine Nitrite Negative Ur Leukocyte Esterase Large (3+) H Urine RBC 6-10 H Urine WBC >50 H Ur Squamous Epith Cells 0-2 Urine Bacteria 2+ Hyaline Casts 3-5 Urine Test NEGATIVE 06/06/22 06:15 MCV MCH MCHC RDW Plt Count MPV Immature Gran % (Auto) Neut % (Auto) Lymph % (Auto) [place] % (Auto) Eos % (Auto) Baso % (Auto) Lymph # (Auto) [place] # (Auto) Eos # (Auto) Baso # (Auto) Abs Immat Gran (auto) Absolute Neuts (auto) Absolute Nucleated RBC Nucleated RBC % (auto) Smear Tech's Comments Anion Gap 13 Estim Creat Clear Calc 109.1 Estimated GFR > 60 Random Glucose 111 Lactic Acid Calcium 8.8 D Magnesium Total Bilirubin Direct Bilirubin AST ALT Alkaline Phosphatase Total Protein Albumin Lipase Beta HCG, Quant Urine Color Urine Appearance Urine pH Ur Specific [place] Urine Protein Urine Glucose (UA) Urine Ketones Urine Blood Urine Nitrite Ur Leukocyte Esterase Urine RBC Urine WBC Ur Squamous Epith Cells Urine Bacteria Hyaline Casts Urine Test Microbiology Microbiology Results: Microbiology 06/05/22 Unknown Urine Culture - Preliminary Urine clean catch - Urine hobbs top Gram negative marcus 06/05/22 18:43 Blood Culture - Preliminary Blood - Venous Prelim: GNR Gram Stain only 06/05/22 18:43 Blood Culture - Preliminary Blood - Venous Prelim: GNR Gram Stain only Assessment and Plan (1) Acute UTI: Status: Acute (2) Pyelonephritis: Status: Acute Plan 42-year-old female who denies any past medical history presents to the hospital with complaints of urinary symptoms found to have acute UTI and pyelonephritis sepsis sec acute UTI/pyelonephritis/bacteremia - positive UA, evidence of CVA tenderness, urinary symptoms including urgency frequency and dysuria Leukocytosis improving, no fever, gram-negative bacteremia - will treat with IV antibiotics - follow cultures renal lesion - 2.0 cm lesion seen on CT of the abdomen - will need follow-up outpatient pelvic us:?Endometrium measures thickened for the phase of menstrual cycle measuring 2.1 cm in thickness. Fundal endometrium appears heterogeneous in appearance with question of a 1.8 cm endometrial polyp which could be confirmed with a saline sonohysterogram if warranted. Possible small 1.5 cm subserosal myoma in the posterior body of the uterus. follow up with pcp outpatient,consider outpatient carbon electrodes supervisor eval. DVT prophylaxis:? Early ambulation inpatient need: sepsis ,uti, gram-negative bacteremia: Needs IV antibiotics, blood culture needs to be finalized with sensitivity. Time Spent With Patient Time: Total time managing care of this patient today ____ minutes. Quality Stroke Does the patient have a stroke diagnosis?: No VTE Prior VTE?: No VTE Risk Level:: Medical - low VTE Device Contraindication: Treatment Not Indicated VTE Drug Contraindication: Treatment Not Indicated
[2022-06-06 15:33] VITALS: BP 121/60; PULSE 73; RESP 16; TEMP 36.8; O2SAT 96
[2022-06-06] MEDS: cefTRIAXone sodium 2 GM in 0.9 % Sodium Chloride 50 ML IV (16:03)
[2022-06-06] MEDS: 0.9 % Sodium Chloride Flush 3 ML SYRINGE IVFLUSH (16:04)
[2022-06-06 19:17] VITALS: BP 131/69; PULSE 76; RESP 18; TEMP 36.9; O2SAT 96
[2022-06-07 03:19] VITALS: BP 116/67; PULSE 66; RESP 16; TEMP 36.5; O2SAT 100
[2022-06-07] MEDS: Lactated Ringers 1,000 ML 100 ML IVCONT ×2 (04:40→18:25)
[2022-06-07 07:04] VITALS: BP 121/59; PULSE 66; RESP 16; TEMP 36.7; O2SAT 95
--- NOTE | 2022-06-07 10:39 | HO.PM.IMPN ---
Subjective Subjective Date of Service: 06/07/22 Interval History: Abdominal pain, nausea vomit Review of Systems still has similar abd pain, no fevers Physical Exam Vital Signs: Vital Signs: Last Vital Signs Temp 98.1 F 06/07/22 07:04 Pulse 66 06/07/22 07:04 Resp 16 06/07/22 07:04 BP 121/59 L 06/07/22 07:04 Pulse Ox 95 06/07/22 07:04 O2 Del Method Room Air 06/07/22 07:04 BMI result Body Mass Index 24.0 Appearance: Alert.? Oriented X3.? not in distress.?. cvs: rrr, [id number] . res: clear to auscultation ,no rhonchii or wheezing abd: no rebound or guarding ,right cva tenderness , bs present. ext pulses present , no cyanosis. neuro: axo3 , nonfocal. Objective Data Active Medications Acetaminophen (Acetaminophen 325 Mg Tablet) 650 mg PO Q6H PRN PRN Reason: Pain, Mild (Pain Scale 1-3) Last Admin: 06/06/22 23:57 Dose: 650 mg Documented By: MICHAELA Docusate Sodium (Docusate Sodium 100 Mg Capsule) 100 mg PO DAILY PRN PRN Reason: Constipation Lactated Ringer's (Lr) 1,000 mls @ 100 mls/hr IVCONT .Q10H [facility] Last Admin: 06/07/22 04:40 Dose: 100 mls/hr Documented By: MICHAELA Ceftriaxone Sodium 2 gm/ (Sodium Chloride) 50 mls @ 100 mls/hr IV Q24H [facility] Last Infusion: 06/06/22 16:56 Dose: 0 mls/hr Documented By: CHAD Ondansetron HCl (Ondansetron Hcl 4 Mg/2 Ml Vial) 4 mg IVPUSH Q8H PRN PRN Reason: Nausea and Vomiting Oxycodone HCl (Oxycodone Hcl Immed Release 5 Mg Tablet) 5 mg PO Q6H PRN PRN Reason: Pain, Severe (Pain Scale 7-10) Pharmacy Consult (Consult Rx Perform Med Rec) 1 each MISCELLANE ONCE PRN PRN Reason: Consult order Sodium Chloride (0.9 % Sodium Chloride Flush 3 Ml Syringe) 3 ml IVFLUSH QSHIFT [facility] Last Admin: 06/07/22 09:09 Dose: Not Given Documented By: IRENE Non-Admin Reason: IV Running Labs 06/06/22 06:15 06/06/22 06:15 Microbiology Microbiology Results: Microbiology 06/05/22 18:43 Blood Culture - Preliminary Blood - Venous Gram negative marcus 06/05/22 18:43 Blood Culture - Preliminary Blood - Venous Gram negative marcus 06/05/22 Unknown Urine Culture - Final Urine clean catch - Urine hobbs top Escherichia coli Assessment and Plan (1) Acute UTI: Status: Acute (2) Pyelonephritis: Status: Acute Plan 42-year-old female who denies any past medical history presents to the hospital with complaints of urinary symptoms found to have acute UTI and pyelonephritis sepsis sec acute UTI/pyelonephritis/bacteremia - positive UA, evidence of CVA tenderness, urinary symptoms including urgency frequency and dysuria Leukocytosis improving, no fever, gram-negative bacteremia-organism identification/senstivities pending - will treat with IV antibiotics - follow cultures renal lesion - 2.0 cm lesion seen on CT of the abdomen - will need follow-up outpatient pelvic us:?Endometrium measures thickened for the phase of menstrual cycle measuring 2.1 cm in thickness. Fundal endometrium appears heterogeneous in appearance with question of a 1.8 cm endometrial polyp which could be confirmed with a saline sonohysterogram if warranted. Possible small 1.5 cm subserosal myoma in the posterior body of the uterus. follow up with pcp outpatient,consider outpatient isotope technologist eval. DVT prophylaxis:? Early ambulation inpatient need: sepsis ,uti, gram-negative bacteremia: Needs IV antibiotics, blood culture needs to be finalized with sensitivity. Time Spent With Patient Time: Total time managing care of this patient today ____ minutes. Quality Stroke Does the patient have a stroke diagnosis?: No VTE Prior VTE?: No VTE Risk Level:: Medical - low VTE Device Contraindication: Treatment Not Indicated VTE Drug Contraindication: Treatment Not Indicated
[2022-06-07 14:58] VITALS: BP 107/61; PULSE 76; RESP 18; TEMP 36.9; O2SAT 97
[2022-06-07] MEDS: ondansetron HCL 4 MG/2 ML VIAL IVPUSH (15:52)
[2022-06-07] MEDS: Acetaminophen 325 MG TABLET 650 MG PO (15:52)
[2022-06-07] MEDS: cefTRIAXone sodium 2 GM in 0.9 % Sodium Chloride 50 ML IV (15:53)
[2022-06-07] MEDS: oxyCODONE HCl Immed Release 5 MG TABLET PO (16:57)
[2022-06-07 20:00] VITALS: BP 110/52; PULSE 60; RESP 16; TEMP 35.9; O2SAT 98
--- NOTE | 2022-06-07 23:27 | P.CNUR_ITS ---
History of Present Illness Consult details Consult date: 06/06/22 Reason for consult: other (Renal mass, UTI, and Pyelonephritis ) Narrative: Day is a pleasant 42-year-old female who denies any past medical history. She presents to the hospital with complaints of urinary symptoms who was found to have an acute UTI and pyelonephritis. In review of patient's chart positive UA (gram-negative rods) who is being treated with IV antibiotics. CT of the abdomen reviewed it appears 2.0 cm right upper pole renal lesion seen on CT. In assessment of the patient today she is laying in bed she reports to be feeling better than on admission. She reports urinary frequency, dysuria, and chills to be improving. WBC improving down from 16.6 to 14.3. BUN 6 and CREAT 0.66. She denies having followed up with Urology in the past. She denies having had any previous issues with urinary tract infections in the past. CVA tenderness noted bilaterally. Discussed CT imaging results with the patient today. Discussed follow-up outpatient in office once discharged. Information of Urology office address, and phone number provided and left with the patient. Review of Systems Constitutional: Constitutional: Reports as per HPI Eyes: Eyes: Reports no additional eye complaints ENT: Reports system reviewed and no additional complaints, except as documented Cardiovascular: Cardiovascular: Reports no additional cardiovascular co mplaints Respiratory: Respiratory: Reports no additional respiratory complaints Gastrointestinal: Gastrointestinal: Reports no additional gastrointestinal complaints Genitourinary: Genitourinary: Reports as per HPI Musculoskeletal: Musculoskeletal: Reports no additional musculoskeletal complaints Integumentary/Breasts: Skin/Breast: Reports system reviewed and no additional complaints, except as docu Neurologic: Reports system reviewed and no additional complaints, except as documented Psychiatric: Psychiatric: Reports no additional psychiatric complaints Endocrine: Endocrine: Reports no additional endocrine complaints Hematologic/Lymphatic: Hematologic/Lymphatic: Reports no additional hematologic/lymphatic complaints Allergic/Immunologic: Allergic/Immunologic: Reports no additional allergic/immunologic complaints [facility] Past Medical History Medical History (Updated 06/05/22 @ 21:49 by Que Morfin MD) No pertinent past medical history Surgical History Surgical History (Updated 06/05/22 @ 21:49 by Que Morfin MD) No pertinent past surgical history Social History Social History (Updated 06/05/22 @ 21:49 by Que Morfin MD) Household Members: Children Household Members Other:: 3 Housing: House Do you presently have visiting nurse or other home services: No Alcohol intake: current Patient Tobacco Use Status: Former Tobacco user Quit Date: 20 years ago Tobacco use type: Cigarette Second Hand Smoke Exposure: Yes Substance Use Type: Marijuana service: No Current occupational status: unemployed Meds Allergies Allergy/AdvReac Type Severity Reaction Status Date / Time Penicillins Allergy Hives Verified 06/05/22 19:49 Active Medications: Current Medications Acetaminophen (Acetaminophen 325 Mg Tablet) 650 mg PO Q6H PRN PRN Reason: Pain, Mild (Pain Scale 1-3) Last Admin: 06/07/22 15:52 Dose: 650 mg Docusate Sodium (Docusate Sodium 100 Mg Capsule) 100 mg PO DAILY PRN PRN Reason: Constipation Ceftriaxone Sodium 2 gm/ (Sodium Chloride) 50 mls @ 100 mls/hr IV Q24H [facility] Last Infusion: 06/07/22 16:44 Dose: Infused Ondansetron HCl (Ondansetron Hcl 4 Mg/2 Ml Vial) 4 mg IVPUSH Q8H PRN PRN Reason: Nausea and Vomiting Last Admin: 06/07/22 15:52 Dose: 4 mg Oxycodone HCl (Oxycodone Hcl Immed Release 5 Mg Tablet) 5 mg PO Q6H PRN PRN Reason: Pain, Severe (Pain Scale 7-10) Last Admin: 06/07/22 16:57 Dose: 5 mg Pharmacy Consult (Consult Rx Perform Med Rec) 1 each MISCELLANE ONCE PRN PRN Reason: Consult order Sodium Chloride (0.9 % Sodium Chloride Flush 3 Ml Syringe) 3 ml IVFLUSH QSHIFT [facility] Last Admin: 06/07/22 15:06 Dose: Not Given Home Medications Medication Instructions Recorded Confirmed Last Taken Type No Known Home Meds 06/05/22 06/05/22 Unknown History Physical Exam Vital Signs: Vital Signs: Last Vital Signs Temp 96.6 F L 06/07/22 20:00 Pulse 60 06/07/22 20:00 Resp 16 06/07/22 20:00 BP 110/52 L 06/07/22 20:00 Pulse Ox 98 06/07/22 20:00 O2 Del Method Room Air 06/07/22 20:00 BMI result Body Mass Index 24.0 Const: General: cooperative, comfortable, no acute distress, well developed, alert and awake Orientation/consciousness: patient oriented x3 Limitations: no limitations HEENT: Head: Yes normal to inspection, Yes normocephalic and Yes atraumatic Ears: hearing grossly normal bilaterally Eyes: General: appearance normal, both eyes and all related structures Neck: Neck: Yes normal visual inspection and Yes trachea midline Chest: Chest palpation & inspection: normal inspection of the chest Resp: Effort & Inspection: normal respiratory effort and able to speak in complete sentences Cardio: Rate: regular rate GI: Inspection: Yes normal to inspection : General: Yes CVA tenderness bilateral Back/Spine/Pelvis: Back: CVA tenderness Skin: General skin exam: no rashes or lesions noted Neuro: General: patient oriented x3 Extrem: General: Yes normal to inspection Psych: Appearance: grossly normal Mental Status: mental status grossly normal Speech and movement: Normal speech and movement present and Clear speech present Affect: normal affect Attitude: cooperative Thought process: Normal thought process present Thought content: Normal thought content present Insight: Good insight present (Psych) Judgement: Good judgement present (Psych) Results Labs 06/06/22 06:15 06/06/22 06:15 Labs: Urine 06/05/22 06/05/22 Range/Units 20:06 20:06 Urine Color Yellow Urine Appearance Turbid Urine pH 7.5 (5.0-9.0) Ur Specific [place] 1.010 (1.005-1.025) Urine Protein 100 (2+) H (Neg-Trace) mg/dL Urine Glucose (UA) Negative (Negative) mg/dL Urine Test NEGATIVE (NEGATIVE) All other labs normal. Imaging Abdomen CT scan report/results: report reviewed Assessment and Plan (1) Renal lesion: Status: Acute (2) Acute UTI: Status: Acute (3) Pyelonephritis: Status: Acute Plan Continue IV antibiotics WBC tredning down BUN/CREAT; WNL Discussed CT imaging results with the patient Follow up outpatient once discharged; office information provided/left with the patient Message sent through [email or web address] for office staff to schedule patient outpatient follow up appointment Time Spent With Patient Time: Total time managing care of this patient today ____ minutes. Procedures Date of Service Date of Service: 06/06/22
[2022-06-08 03:37] VITALS: BP 105/63; PULSE 70; RESP 16; TEMP 36.7; O2SAT 95
[2022-06-08 08:00] VITALS: BP 115/61; PULSE 61; RESP 16; TEMP 36.7; O2SAT 100
--- NOTE | 2022-06-08 10:04 | P.DS_ITS ---
DS: Providers Provider Date of Service: 06/08/22 Date of admission: 06/05/22 21:43 Date of discharge: 06/08/22 Primary care physician: None Physician Admitting clinician: Que Morfin Attending physician on admission: Que Morfin Consults: 06/06/22 08:12 Consult to Urology Routine Consulting Provider: Santiago Thomas Reason for consultation: renal lesion,uti/pyelonephritis Has provider been notified: No Attending physician on discharge: Raj Lujan Discharging clinician: Raj Lujan DS: Diagnosis Discharge Diagnosis (1) Renal lesion: Status: Acute (2) Acute UTI: Status: Acute (3) Pyelonephritis: Status: Acute DS: Summary Hospital Course Hospital Course: 42-year-old female with no significant past medical history comes into the hospital with complaints of nausea vomiting, lower abdominal pain, urinary frequency, urgency, dysuria, as well as flank pain bilaterally that started yesterday.? Patient denies fever but has chills, reports no chest pain, no shortness of breath, no diarrhea constipation, no lower extremity edema.? No numbness tingling or weakness, no change in vision and headache.? On arrival to the patient hemodynamically stable with no significant abnormal vitals Labs are significant WBC count of 16.6, hemoglobin of 12.4, hematocrit 36.1, UA positive for leukocyte Estrace, WBC, bacteria, Abdominal pelvic CT shows right-sided urothelial thickening which could be seen in the setting of urinary tract infection, there is also an indeterminate intermediate attenuation in the right upper pole of the renal lesion measuring 2.0 cm, no obstructing stone Patient started on IV antibiotics will be admitted for further management. Hospital course: Patient came to the hospital because of the complaints of nausea vomiting abdominal pain and dysuria: UA shows possible UTI- Patient admitted with Sepsis secondary to UTI, pyelonephritis : Started on IV antibiotics, and urine, blood cultures sent. Patient seems to be improving with IV antibiotics, urine and blood culture growing E coli-no fever, leukocytosis improving. Patient was switched to p.o. antibiotics on discharge-please complete the course. renal lesion- 2.0 cm lesion seen on CT of the abdomen, follow-up outpatient with urology. Pelvic ultrasound showed -Endometrium measures thickened for the phase of menstrual cycle measuring 2.1 cm in thickness. Fundal endometrium appears heterogeneousin appearance with question of a 1.8 cm endometrial polyp,??small 1.5 cm subserosal myoma in the posterior body of the uterus: follow up with product communications manager outpatient, patient need outpatient follow up. please complete the course of antibiotics, follow-up with Urology and microfilm machine operator for above. Above management discussed with the patient in detail length she understand and in agreement with the above plan, time spent 50 minutes and 50% time spent on counseling. Time Spent with Patient Time attestation: Total time managing care of this patient today ____ minutes. Discharge coordination time: Greater than 30 minutes Quality: Safe Use of Opioids Does Pt have an Active Cancer Diagnosis on the Problem List?: No Quality: Stroke Does the patient have a stroke diagnosis?: No Physical Exam Vital Signs: Vital Signs: Last Vital Signs Temp 98.1 F 06/08/22 08:00 Pulse 61 06/08/22 08:00 Resp 16 06/08/22 08:00 BP 115/61 06/08/22 08:00 Pulse Ox 100 06/08/22 08:00 O2 Del Method Room Air 06/08/22 08:00 BMI result Body Mass Index 24.0 Appearance: Alert.? Oriented X3. cvs: rrr, [id number]. res: clear to auscultation ,no rhonchii or wheezing abd: no rebound or guarding ,nt, bs present. : CVA tendeness improved . ext pulses present , no cyanosis. neuro: axo3 , nonfocal. DS: Data Imaging Chest x-ray: Radiologist's impression: ITS Impressions Abdomen/Pelvis CT 06/05/22 17:01 IMPRESSION: 1. Right-sided urothelial thickening, which could be seen in the setting of a urinary tract infection. Recommend correlation with urinalysis. Lack of intravenous contrast limits evaluation for pyelonephritis. 2. Intermediate attenuation right upper pole renal lesion measuring 2.0 cm, incompletely characterized. Recommend further characterization with renal ultrasound and if findings are not determined to reflect a cyst a CT or MR renal mass protocol would be required for further evaluation. 3. Punctate nonobstructing right renal stones. No obstructing stones. 4. Hepatic steatosis. Doppler Study Ultrasound 06/05/22 19:28 IMPRESSION: 1. No evidence of ovarian torsion. 2. Endometrium measures thickened for the phase of menstrual cycle measuring 2.1 cm in thickness. Fundal endometrium appears heterogeneous in appearance with question of a 1.8 cm endometrial polyp which could be confirmed with a saline sonohysterogram if warranted. 3. Possible small 1.5 cm subserosal myoma in the posterior body of the uterus. Pelvic/Transvag US 06/05/22 19:28 IMPRESSION: 1. No evidence of ovarian torsion. 2. Endometrium measures thickened for the phase of menstrual cycle measuring 2.1 cm in thickness. Fundal endometrium appears heterogeneous in appearance with question of a 1.8 cm endometrial polyp which could be confirmed with a saline sonohysterogram if warranted. 3. Possible small 1.5 cm subserosal myoma in the posterior body of the uterus. Discharge Plan Discharge Anticipated Discharge Date/Time: 06/08/22 09:48 Patient Disposition: Home, Self-Care Discharge Diagnosis: Renal lesion, sepsis sec UTI and pyelonephritis, bacteremia E coli. Referrals: Santiago Thomas MD [Physician] - 1 Week (Follow up outpatient) PhysicianTonio [Primary Care Provider] - 1 Week Discharge Medications: New cefuroxime axetil 500 mg tablet 500 mg PO BID Qty: 24 0RF Discharge Orders: Discharge Order (Routine); Ordered 06/08/22 Ordered By: Raj Lujan Diet: Advance to usual diet Activity on Discharge: As tolerated Stand Alone Forms: Patient Portal Discharge page Care Plan Goals: Sepsis secondary to UTI, pyelonephritis, E coli bacteremia: Started on IV antibiotics, and urine, blood cultures sent. Patient seems to be improving with IV antibiotics, urine and blood culture growing E coli-no fever, leukocytosis improving. Patient was switched to p.o. antibiotics on discharge-please complete the course. renal lesion- 2.0 cm lesion seen on CT of the abdomen, follow-up outpatient with urology. Pelvic ultrasound showed -Endometrium measures thickened for the phase of menstrual cycle measuring 2.1 cm in thickness. Fundal endometrium appears heterogeneousin appearance with question of a 1.8 cm endometrial polyp,??small 1.5 cm subserosal myoma in the posterior body of the uterus: follow up with product communications manager outpatient, patient need outpatient follow up. please complete the course of antibiotics, follow-up with Urology and microfilm machine operator for above. Health Concerns: As above. Plan of Treatment: As above. Assessment: As above. Patient Instructions: Urinary Tract Infection in Women (DC), Sepsis (GEN), Bacteremia (DC)
--- NOTE | 2022-06-08 10:29 | MHC.CM.PN ---
PT WILL DC HOME TODAY WI NO SERVICES PT TO ARRANGE TRANSPORT
== END 2022-06-08 11:52 | disposition home or self-care (01) | DRG 720 ==
LOC: HO.ED 21:46 → HO.EDOVER 22:03 → HO.S3 06-06 00:39
PROVIDERS: Physician Assistant; Admitting Provider Internal Medicine; Emergency Provider Emergency Medicine; Visit Provider Internal Medicine
DX: A41.9 Sepsis, unspecified organism (principal); K76.0 Fatty (change of) liver, not elsewhere classified; D25.2 Subserosal leiomyoma of uterus; B96.20 Unspecified Escherichia coli [E. coli] as the cause of diseases classified elsewhere; N10 Acute pyelonephritis; N28.9 Disorder of kidney and ureter, unspecified; Z87.891 Personal history of nicotine dependence; Z88.0 Allergy status to penicillin
CPT/HCPCS: 36415; 74176; 76830; 76856; 80048; 80076; 81001; 81025; 83605; 83690; 83735; 84702; 85025; 87040; 87077; 87086; 87088; 87186; 87205; 93975; 99221; 99285; J0696; J1956; J2270; J2405

== ENCOUNTER 2022-08-01 11:01 | Outpatient (AMB) | payer OTHER, SELFPAY ==
--- OUTSIDE RECORDS SUMMARY | 2022-08-01 11:02 | XMS_ITS | Continuity of Care Document ---
Author Name Unknown Organization [facility] Nay [employer] [employer] [facility] Address [address], [address] [address]- Care Team Providers Care Motion Picture Film Examiner Name Role Phone Tatiana MARIA, Christian Aparicio Primary Care Physician Encounter [facility] Date(s): 06/18/22 - 07/18/22 [facility] [employer] [address] [place] [address]- Attending Physician: Gretchen Marte Admitting Physician: Gretchen Marte Referring Physician: AdmGretchen flores Allergies, Adverse Reactions, Alerts Substance Reaction Severity Status penicillin rash hives Active Immunizations Given and Recorded Vaccine Date Status Refusal Reason tetanus/diphtheria/pertussis, acel(Tdap) 09/13/12 Given Boostrix (Tdap) (oldterm) 07/26/10 Given Medications ibuprofen 600 mg oral tablet 1 tablet = 600 mg, By Mouth, 3 times a day, # 15 tablet, 0 Refills, Maintenance, 11/08/14 19:29:25,Tablet Start Date: 11/08/14 Stop Date: 11/13/14 Status: Ordered Multivitamins with Folic Acid 1 mg oral capsule See Instructions, TAKE ONE DAILY, # 30 tablet, 8 Refills, Maintenance Start Date: 06/07/12 Status: Ordered Patient Care team information Care Team Personnel Name: Smiley Regalado RN Position: [facility] RN Member Role: Primary Care Nurse Name: Alyssa Wilson RN Position: [facility] PCO w/OE and EZ Script Member Role: Primary Care Nurse Care Team Related Persons Name: MARGY AKBAR Address: [place] [address]
--- NOTE | 2022-08-01 11:05 | MHC.OFFVIS ---
Intake Intake Visit Reasons: ER follow up- Pyelonephritis Intake Note: Pt presents to the office today for an ER f/u for Pyelonephritis. Urinalysis done. Allergies Penicillins Allergy (Verified 08/01/22 11:05) Hives Medication List - Last Reconciled 08/01/22 by Melvin Simmons MD sulfamethoxazole-trimethoprim 800-160 mg (Bactrim DS) 1 tab PO BID HPI HPI Comments History of Present Illness Details Day is a 42-year-old female who presents to the office as a new patient evaluation for ER follow-up of nephrolithiasis. 08/01/22-- The patient visited the ER on 06/05/22 and was given antibiotics for UTI and right nephrolithiasis. Complains having dysuira. The patient mentions history of UTIs during the time of her each . She is a mother three children. CTAP without contrast results reviewed--06/05/22-- findings of right-sided urothelial thickening, intermediate attenuation right upper pole renal lesion measuring 2.0 cm incompletely characterized, and punctate nonobstructing right renal stones. Evaluation today-- Blood: negative, leukocytes: trace. Plan: CTAP with and without IV contrast prior for further evaluation of the lesions. Bactrim DS one tab twice a day for 7 days was ordered. Follow-up after 2 months. [facility] Medical History No pertinent past medical history Surgical History No pertinent past surgical history Social History Household Members: Children Household Members Other:: 3 Housing: House Do you presently have visiting nurse or other home services: No Alcohol intake: current Patient Tobacco Use Status: Former Tobacco user Quit Date: 20 years ago Tobacco use type: Cigarette Second Hand Smoke Exposure: Yes Substance Use Type: Marijuana service: No Current occupational status: unemployed Review of Systems Const All systems reviewed & are unremarkable except as noted in HPI and below Reports no additional complaints Eyes Reports no additional complaints ENT Reports no additional complaints Card Denies dyspnea Resp Denies cough and Denies dyspnea GI Reports no additional complaints Reports no additional complaints Musc Reports no additional complaints Skin/Breast Denies rash and Denies unusual bruising Neuro Reports no additional complaints Psych Reports no additional complaints Endo Reports no additional complaints Ortega/Lymph Reports no additional complaints Aller/Immun Reports no additional complaints Physical Exam Const General: cooperative, healthy appearing and no acute distress Orientation/consciousness: patient oriented x3 HEENT Head: Yes normal to inspection, Yes normocephalic and Yes atraumatic Eyes Conjunctivae: conjunctivae normal Neck Neck: Yes normal visual inspection and Yes trachea midline Chest Chest palpation & inspection: normal inspection of the chest Resp Effort & Inspection: normal respiratory effort Cardio Rate: regular rate GI Inspection: Yes normal to inspection Palpation (GI): Soft to palpation Skin General skin exam: no rashes or lesions noted Neuro General: patient oriented x3 Extrem General: No edema Psych Appearance: grossly normal Results AMB Urinalysis, Automated UA Leukoctes 15 Derrek/uL Last Edit by Barbara Williamson MA on 08/01/22 11:17 UA Nitrite Negative Last Edit by Barbara Williamson MA on 08/01/22 11:17 UA Urobilinogen 0.2 mg/dL Last Edit by Barbara Williamson MA on 08/01/22 11:17 UA Protein 0 mg/dL Last Edit by Barbara Williamson MA on 08/01/22 11:17 UA pH 6.0 Last Edit by Barbara Williamson MA on 08/01/22 11:17 UA Blood 0 Bautista/uL Last Edit by Barbara Williamson MA on 08/01/22 11:17 UA Specific [place] 1.025 Last Edit by Barbara Williamson MA on 08/01/22 11:17 UA Ketone Negative Last Edit by Barbara Williamson MA on 08/01/22 11:17 UA Bilirubin 0 mg/dL Last Edit by Barbara Williamson MA on 08/01/22 11:17 UA Glucose 0 mg/dL Last Edit by Barbara Williamson MA on 08/01/22 11:17 Results Reviewed Results Reviewed: Laboratory Last Values Urine pH (Auto) 6.0 08/01/22 11:07 Specific [place] (Auto) 1.025 08/01/22 11:07 Urine Protein (Auto) 0 mg/dL 08/01/22 11:07 Glucose (UA)(Auto) 0 mg/dL 08/01/22 11:07 Urine Ketones (Auto) Negative 08/01/22 11:07 Urine Blood (Auto) 0 Bautista/uL 08/01/22 11:07 Urine Nitrite (Auto) Negative 08/01/22 11:07 Urine Bilirubin (Auto) 0 mg/dL 08/01/22 11:07 Urine Urobilinogen (Auto) 0.2 mg/dL 08/01/22 11:07 Leukocyte Esterase (Auto) 15 Derrek/uL 08/01/22 11:07 Date of Service: 06/05/22 EXAMINATION: CT ABDOMEN AND PELVIS WITHOUT CONTRAST? CLINICAL INFORMATION: Abdominal pain, vomiting? COMPARISON: None available.? TECHNIQUE: Multidetector volumetric imaging was performed from the superior aspect of the liver through the pubic symphysis. Sagittal and coronal reformatted images were obtained on the technologist's workstation.? This CT examination was performed using dose optimization techniques as appropriate, variously including the following: *Automated exposure control *Adjustment of mA and/or kV according to patient size (this includes techniques or standardized protocols for targeted exams where dose is matched to indication/reason for exam; i.e. extremities or head) *Use of iterative reconstruction technique DLP: 446 mGy-cm FINDINGS: LUNG BASES: Unremarkable.? ABDOMINAL AND PELVIC WALL:? Tiny fat-containing umbilical hernia.? LIVER AND BILIARY TREE: Hypoattenuating hepatic parenchyma compatible with hepatic steatosis.? GALLBLADDER: Unremarkable.? PANCREAS: Unremarkable.? SPLEEN: Unremarkable.? ADRENAL GLANDS: Unremarkable.? KIDNEYS AND URETERS: Intermediate attenuation right upper pole renal lesion measuring 2.0 cm. Right renal parenchymal cortical scarring. Punctate nonobstructing right renal stones.? Right sided urothelial thickening. No obstructing stone. Lack of contrast limits evaluation for pyelonephritis. GASTROINTESTINAL TRACT: Colonic diverticulosis without evidence of diverticulitis.? Normal appendix. VASCULAR: Unremarkable. LYMPH NODES/PERITONEUM: No lymphadenopathy. FREE FLUID: None. BLADDER: Unremarkable.? PELVIC VISCERA: Tampon is present within the vagina. OSSEOUS STRUCTURES: Status post right sacroiliac fusion. Chronic fracture deformities of the bilateral pubic rami.? IMPRESSION: 1.? Right-sided urothelial thickening, which could be seen in the setting of a urinary tract infection. Recommend correlation with urinalysis. Lack of intravenous contrast limits evaluation for pyelonephritis. 2.? Intermediate attenuation right upper pole renal lesion measuring 2.0 cm, incompletely characterized. Recommend further characterization with renal ultrasound and if findings are not determined to reflect a cyst a CT or MR renal mass protocol would be required for further evaluation. 3.? Punctate nonobstructing right renal stones. No obstructing stones. 4.? Hepatic steatosis. ? Assessment & Plan Assessment & Plan (1) UTI (urinary tract infection): Code(s): N39.0 - Urinary tract infection, site not specified (2) Kidney stone: Code(s): N20.0 - Calculus of kidney (3) Renal mass: Code(s): N28.89 - Other specified disorders of kidney and ureter Plan CTAP with and without IV contrast prior for further evaluation of the lesions. Bactrim DS one tab twice a day for 7 days was ordered. Follow-up after 2 months. Orders: Orders CT abdomen wo/w IV con 08/01/22 N28.9 - Disorder of kidney and ureter, unspecified, N12 - Tubulo-interstitial nephritis, not specified as acute or chronic AMB Urinalysis Automated 08/01/22 Z13.9 - Encounter for screening, unspecified Medications: New sulfamethoxazole-trimethoprim 800-160 mg (Bactrim DS) 1 tab PO BID 7 tabs 0RF Coding Level of Care Code New Pt Level 4 (05004) Diagnoses UTI (urinary tract infection) N39.0 Kidney stone N20.0 Renal mass N28.89
== END 2022-08-01 11:39 | disposition home or self-care (01) ==
LOC: HO.HUSH 11:01
PROVIDERS: Visit Provider Urology
DX: N39.0 Urinary tract infection, site not specified (principal); N20.0 Calculus of kidney; N28.89 Other specified disorders of kidney and ureter; N28.9 Disorder of kidney and ureter, unspecified; N12 Tubulo-interstitial nephritis, not specified as acute or chronic
CPT/HCPCS: 99204

== ENCOUNTER → 2022-08-01 11:01 | Outpatient (BNVA) | payer OTHER, SELFPAY | PROVIDERS: Visit Provider Urology | DX: N39.0 Urinary tract infection, site not specified (principal); N20.0 Calculus of kidney; N28.89 Other specified disorders of kidney and ureter | CPT/HCPCS: 99202 ==

== ENCOUNTER 2022-10-09 09:55 | Outpatient (AMB) | payer OTHER, SELFPAY ==
--- NOTE | 2022-10-09 07:26 | MHC.OFFVIS ---
Intake Intake Visit Reasons: 2m/CT Intake Note: Patient presents today for a follow-up on results. Meds- Sulfa Allergies to Antibiotic- Penicillins Blood Thinner- None Process Consultant Required: No Accompanied by: Self / Same As Patient Allergies Penicillins Allergy (Verified 10/09/22 10:28) Hives Medication List - Last Reconciled 10/09/22 by Melvin Simmons MD levofloxacin 500 mg PO DAILY 10 days HPI HPI Comments History of Present Illness Details Day is a 42-year-old female who presents today to the office for a 2 month follow up of CAT scan results. She was last seen by me on 08/01/2022. She was treated with antibiotics for pyelonephritis. CT imaging done on 06/05/2022 which showed some thickening of the urethelium, non obstructive right renal stones. Also CT imaging showed 2.0 cm incompletely characterized renal lesion. Patient reports recurrent right flank pain. h/o recurrent UTI, pyelo Urine culture done on 06/25/2022. She denies any hematuria. Evaluation today UA: blood; negative; leukocytes: negative. Plan: 2.0 cm incompletely characterized renal lesion, upper pole right kidney. Follow up evaluation with ct abdomen/renal mass protocol. Right flank pain. I will treat empirically for the right pyleonephritis. Course of Levaquin 500 mg daily for 10 days. Telephonic follow up in 8 weeks. [facility] Medical History No pertinent past medical history Surgical History No pertinent past surgical history Family History Mother No problems noted. Father No problems noted. Social History Household Members: Children Household Members Other:: 3 Housing: House Do you presently have visiting nurse or other home services: No Alcohol intake: current Patient Tobacco Use Status: Former Tobacco user Quit Date: 20 years ago Tobacco use type: Cigarette Second Hand Smoke Exposure: Yes Substance Use Type: Marijuana service: No Current occupational status: unemployed Review of Systems Const All systems reviewed & are unremarkable except as noted in HPI and below Reports no additional complaints Eyes Reports no additional complaints ENT Reports no additional complaints Card Denies dyspnea Resp Denies cough and Denies dyspnea GI Reports no additional complaints Reports no additional complaints Musc Reports no additional complaints Skin/Breast Denies rash and Denies unusual bruising Neuro Reports no additional complaints Psych Reports no additional complaints Endo Reports no additional complaints Ortega/Lymph Reports no additional complaints Aller/Immun Reports no additional complaints Physical Exam Const General: cooperative, healthy appearing and no acute distress Orientation/consciousness: patient oriented x3 HEENT Head: Yes normal to inspection, Yes normocephalic and Yes atraumatic Eyes Conjunctivae: conjunctivae normal Neck Neck: Yes normal visual inspection and Yes trachea midline Chest Chest palpation & inspection: normal inspection of the chest Resp Effort & Inspection: normal respiratory effort Cardio Rate: regular rate GI Inspection: Yes normal to inspection Palpation (GI): Soft to palpation Skin General skin exam: no rashes or lesions noted Neuro General: patient oriented x3 Extrem General: No edema Psych Appearance: grossly normal Results AMB Urinalysis, Automated UA Leukoctes 0 Derrek/uL Last Edit by Jamison Stewart Kelli on 10/09/22 10:39 UA Nitrite Negative Last Edit by Jamison Stewart Kelli on 10/09/22 10:39 UA Urobilinogen 0.2 mg/dL Last Edit by EDEN Cameron on 10/09/22 10:39 UA Protein 15 mg/dL Last Edit by Jamison Stewart [facility] on 10/09/22 10:39 UA pH 6.0 Last Edit by Jamison Stewart Kelli on 10/09/22 10:39 UA Blood 0 Bautista/uL Last Edit by Jamison Stewart [facility] on 10/09/22 10:39 UA Specific [place] 1.020 Last Edit by EDEN Cameron on 10/09/22 10:39 UA Ketone Negative Last Edit by EDEN Cameron on 10/09/22 10:39 UA Bilirubin 0 mg/dL Last Edit by EDEN Cameron on 10/09/22 10:39 UA Glucose 0 mg/dL Last Edit by Jamison Stewart Kelli on 10/09/22 10:39 Results Reviewed Results Reviewed: Laboratory Last Values Urine pH (Auto) 6.0 10/09/22 10:29 Specific [place] (Auto) 1.020 10/09/22 10:29 Urine Protein (Auto) 15 mg/dL 10/09/22 10:29 Glucose (UA)(Auto) 0 mg/dL 10/09/22 10:29 Urine Ketones (Auto) Negative 10/09/22 10:29 Urine Blood (Auto) 0 Bautista/uL 10/09/22 10:29 Urine Nitrite (Auto) Negative 10/09/22 10:29 Urine Bilirubin (Auto) 0 mg/dL 10/09/22 10:29 Urine Urobilinogen (Auto) 0.2 mg/dL 10/09/22 10: Leukocyte Esterase (Auto) 0 Derrek/uL 10/09/22 10:29 Date of Service: 06/05/22 EXAMINATION: CT ABDOMEN AND PELVIS WITHOUT CONTRAST? CLINICAL INFORMATION: Abdominal pain, vomiting? COMPARISON: None available.? FINDINGS: LUNG BASES: Unremarkable.? ABDOMINAL AND PELVIC WALL:? Tiny fat-containing umbilical hernia.? LIVER AND BILIARY TREE: Hypoattenuating hepatic parenchyma compatible with hepatic steatosis.? GALLBLADDER: Unremarkable.? PANCREAS: Unremarkable.? SPLEEN: Unremarkable.? ADRENAL GLANDS: Unremarkable.? KIDNEYS AND URETERS: Intermediate attenuation right upper pole renal lesion measuring 2.0 cm. Right renal parenchymal cortical scarring. Punctate nonobstructing right renal stones.? Right sided urothelial thickening. No obstructing stone. Lack of contrast limits evaluation for pyelonephritis. GASTROINTESTINAL TRACT: Colonic diverticulosis without evidence of diverticulitis.? Normal appendix. VASCULAR: Unremarkable. LYMPH NODES/PERITONEUM: No lymphadenopathy. FREE FLUID: None. BLADDER: Unremarkable.? PELVIC VISCERA: Tampon is present within the vagina. OSSEOUS STRUCTURES: Status post right sacroiliac fusion. Chronic fracture deformities of the bilateral pubic rami.? IMPRESSION: 1.? Right-sided urothelial thickening, which could be seen in the setting of a urinary tract infection. Recommend correlation with urinalysis. Lack of intravenous contrast limits evaluation for pyelonephritis. 2.? Intermediate attenuation right upper pole renal lesion measuring 2.0 cm, incompletely characterized. Recommend further characterization with renal ultrasound and if findings are not determined to reflect a cyst a CT or MR renal mass protocol would be required for further evaluation. 3.? Punctate nonobstructing right renal stones. No obstructing stones. 4.? Hepatic steatosis. ? Assessment & Plan Assessment & Plan (1) Kidney stone: Code(s): N20.0 - Calculus of kidney Plan: 2.0 cm incompletely characterized renal lesion, upper pole right kidney. Follow up evaluation with ct abdomen/renal mass protocol. Right flank pain. I will treat empirically for the right pyleonephritis. Course of Levaquin 500 mg daily for 10 days. Telephonic follow up in 8 weeks. (2) Renal mass: Code(s): N28.89 - Other specified disorders of kidney and ureter Orders: Orders Urine Culture 10/09/22 N39.0 - Urinary tract infection, site not specified AMB Urinalysis Automated 10/09/22 Z13.9 - Encounter for screening, unspecified Medications: New levofloxacin 500 mg PO DAILY 10 tabs 0RF 10 days Patient Instructions: The patient had an opportunity to ask questions regarding treatment plan. All questions were answered. Imaging, Laboratory studies and physical exam results were discussed and reviewed in detail. No major barriers to understanding were identified. The patient expressed understanding and agreement with the above treatment plan.? ? ? The patient is aware they should contact our office by phone for worsening of their current condition or the appearance of new symptoms. Compliance is encouraged with any medications and followup testing that is ordered.? ? ? It is a privilege to be allowed the opportunity to participate in the urologic care of your patient. If you have any questions or concerns regarding treatment for the above conditions please do not hesitate to contact me. The office telephone contact is [phone].? ? ? This note is constructed in part using voice recognition software. While every effort has been made to ensure accuracy tailor men's ready to wear errors may have been included.? ? ? Yours sincerely,? ? ? Melvin Simmons MD? Coding Level of Care Code Est Pt Level 4 (47637) Diagnoses Kidney stone N20.0 Renal mass N28.89
== END 2022-10-09 11:07 | disposition home or self-care (01) ==
PROVIDERS: PCP Hospitalist; Visit Provider Urology
DX: N20.0 Calculus of kidney (principal); N28.89 Other specified disorders of kidney and ureter
CPT/HCPCS: 99214

== ENCOUNTER 2022-10-09 09:55 | Outpatient (REF) | payer OTHER, SELFPAY | END 2022-10-09 09:56 | disposition home or self-care (01) | LOC: HO.LAB 09:55 | PROVIDERS: PCP Hospitalist; Visit Provider Urology | DX: N39.0 Urinary tract infection, site not specified (principal); N20.0 Calculus of kidney; N28.89 Other specified disorders of kidney and ureter | CPT/HCPCS: 87086; 87147; 99212 ==

== ENCOUNTER 2022-11-27 11:05 | Outpatient (REF) | payer MEDICAID, SELFPAY ==
--- NOTE | ~2022-11-27 | CT_ITS ---
EXAMINATION: CT ABDOMEN WITHOUT AND WITH CONTRAST CLINICAL INFORMATION: Disorder of kidney and ureter COMPARISON: Previous CT of the abdomen and pelvis and pelvic ultrasound May 2022 TECHNIQUE: Contiguous axial thin section helical images of the abdomen were performed before and after the administration of oral contrast and 85 mL of Omnipaque 350 intravenous contrast. The data set was reformatted in the coronal and sagittal planes and reviewed on an independent workstation. This CT examination was performed using dose optimization techniques as appropriate, variously including the following: *Automated exposure control *Adjustment of mA and/or kV according to patient size (this includes techniques or standardized protocols for targeted exams where dose is matched to indication/reason for exam; i.e. extremities or head) *Use of iterative reconstruction technique DLP: 461 mGy-cm FINDINGS: LUNG BASES: Normal LIVER, GALLBLADDER, AND BILIARY TREE: Normal PANCREAS: Normal SPLEEN: Normal ADRENAL GLANDS AND KIDNEYS: The adrenal glands are normal in the right kidney is smaller than the left. There are areas of right renal cortical thinning or scarring. There is a 2 mm nonobstructing stone in the lower pole right kidney. No renal mass. Mild right hydronephrosis. Right urothelial thickening May 2022 appears improved. The right ureter does not appear dilated. The left kidney is unremarkable. BOWEL LOOPS: Normal. Normal appendix. Normal stomach. LYMPH NODES: Normal VASCULAR: Normal BONES: Surgical screw in the right pelvis across the right anterior sacroiliac joint CT/CT abdomen wo/w IV con IMPRESSION: Small right kidney with areas of cortical thinning or scarring. No mass. Small nonobstructing right lower pole renal stone. Mild right hydronephrosis. Urothelial thickening appears decreased compared to May 2022 exam. Fleischner guidelines were followed.
[2022-11-27] MEDS: iohexoL 350 MG/ML 100 ML INFUS..BTL 85 ML IV (11:35)
== END 2022-11-27 11:06 | disposition home or self-care (01) ==
LOC: HO.CT 11:05
PROVIDERS: PCP Hospitalist; Visit Provider Urology
DX: N28.9 Disorder of kidney and ureter, unspecified (principal); N12 Tubulo-interstitial nephritis, not specified as acute or chronic
CPT/HCPCS: 74170; Q9967

== ENCOUNTER → 2022-12-01 11:23 | Outpatient (BNVA) | payer SELFPAY | PROVIDERS: PCP Hospitalist; Visit Provider Urology ==